=== PATIENT | female | born 1990 | race Caucasian/White ===

== ENCOUNTER → 2023-10-24 13:55 | Outpatient (REF) | payer OTHER, SELFPAY | LOC: PNTC 13:55 | PROVIDERS: ATTENDING PHYSICIAN Obstetrics & Gynecology | DX: Z34.90 Encounter for supervision of normal pregnancy, unspecified, unspecified trimester (principal) | CPT/HCPCS: 76801 ==

== ENCOUNTER → 2023-11-13 09:52 | Outpatient (REF) | payer OTHER, SELFPAY | LOC: PNTC 09:52 | PROVIDERS: ATTENDING PHYSICIAN Obstetrics & Gynecology | DX: Z36.0 Encounter for antenatal screening for chromosomal anomalies (principal); Z36.82 Encounter for antenatal screening for nuchal translucency | CPT/HCPCS: 76801; 76813 ==

== ENCOUNTER → 2024-01-03 13:20 | Outpatient (REF) | payer OTHER, SELFPAY | LOC: PNTC 13:20 | PROVIDERS: ATTENDING PHYSICIAN Obstetrics & Gynecology | DX: Z34.00 Encounter for supervision of normal first pregnancy, unspecified trimester (principal); O28.9 Unspecified abnormal findings on antenatal screening of mother | CPT/HCPCS: 76811 ==

== ENCOUNTER → 2024-01-09 11:23 | Outpatient (REF) | payer OTHER, SELFPAY | LOC: PNTC 11:23 | PROVIDERS: ATTENDING PHYSICIAN Obstetrics & Gynecology | DX: Z34.90 Encounter for supervision of normal pregnancy, unspecified, unspecified trimester (principal) | CPT/HCPCS: 76815 ==

== ENCOUNTER 2024-05-27 19:12 | Inpatient (IN) | payer OTHER, SELFPAY ==
[2024-05-27 19:39] VITALS: BP 117/76; BMI 28.3
[2024-05-27 20:04] LABS: % Basophils 0.6 % (0-2); % Eosinophils 1.2 % (0-6); % Immature Granulocytes 1.3 % (0-0.5); % Lymphocytes 34.4 % (20.5-51.1); % Monocytes 9.4 % (1.7-9.3); % Neutrophils 53.1 % (42.2-75.2); Absolute Basophils 0.1 10^3/uL (0-0.2); Absolute Eosinophils 0.1 10^3/uL (0-0.7); Absolute Immature Granulocytes 0.1 10^3/uL (0-0.05); Absolute Lymphocytes 3.8 10^3/uL (1.2-3.4); Absolute Neutrophils 5.8 10^3/uL (1.4-6.5); Hematocrit 33.4 % (37.0-47.0); Hemoglobin 11.9 g/dL (12.0-16.0); Mean Corp Hgb Conc. 35.6 g/dL (33.0-37.0); Mean Corpuscular Hgb 32.4 pg (27.0-31.0); Mean Platelet Volume 10.5 fL (7.4-10.4); Nucleated Red Blood Cells % 0 %; Platelet Count 302 10^3/uL (130-400); Red Blood Cell Count 3.67 10^6/uL (4.20-5.40); White Blood Cell Count 10.9 10^3/uL (4.8-10.8)
[2024-05-28] MEDS: PITOCIN 30 UNITS/NSS 500 ML IV (07:34)
[2024-05-28] MEDS: LR 1000 IV ×3 (07:34→23:45)
[2024-05-28] MEDS: PEPCID 40 MG PO (10:03)
[2024-05-28] MEDS: SUBLIMAZE 100 MCG EPIDURAL (20:29)
[2024-05-28] MEDS: FENTANYL/BUPIVACAINE 100 EPIDURAL (20:52)
[2024-05-29] MEDS: PITOCIN 30 UNITS/NSS 500 ML IV (05:17)
[2024-05-29] MEDS: TYLENOL 650 MG PO ×3 (06:45→18:27)
[2024-05-29] MEDS: SYNTHROID 175 MCG PO (06:58)
[2024-05-29] MEDS: PRENATAL PLUS 1 TABLET PO (08:09)
[2024-05-29] MEDS: MOTRIN 600 MG PO ×3 (08:09→20:21)
[2024-05-29] MEDS: PEPCID 40 MG PO (08:15)
[2024-05-29] MEDS: SENOKOT-S 1 TABLET PO (13:48)
[2024-05-30] MEDS: TYLENOL 650 MG PO ×5 (00:18→23:55)
[2024-05-30] MEDS: MOTRIN 600 MG PO ×4 (05:18→23:55)
[2024-05-30 05:42] LABS: Hematocrit 31.2 % (37.0-47.0); Hemoglobin 10.8 g/dL (12.0-16.0)
[2024-05-30] MEDS: SYNTHROID 175 MCG PO (06:23)
[2024-05-30] MEDS: PEPCID 40 MG PO (08:51)
[2024-05-30] MEDS: SENOKOT-S 1 TABLET PO (08:52)
[2024-05-30] MEDS: PRENATAL PLUS 1 TABLET PO (08:52)
[2024-05-31] MEDS: SYNTHROID 175 MCG PO (06:33)
[2024-05-31] MEDS: SENOKOT-S 1 TABLET PO (09:05)
[2024-05-31] MEDS: PEPCID 40 MG PO (09:05)
[2024-05-31] MEDS: PRENATAL PLUS 1 TABLET PO (09:05)
[2024-05-31] MEDS: TYLENOL 650 MG PO (09:29)
[2024-05-31] MEDS: MOTRIN 600 MG PO (09:29)
[2024-05-31 15:43] LABS: Syphilis/T. pallidum Ab Reflex Negative (Negative)
== END 2024-05-31 12:23 | disposition home or self-care (01) | DRG 807 ==
LOC: LDRP 19:12
PROVIDERS: Obstetrics & Gynecology; ADMITTING PHYSICIAN Obstetrics & Gynecology
PROC: 3E033VJ Introduction of Other Hormone into Peripheral Vein, Percutaneous Approach (ICD-10-PCS; 2024-05-28)
PROC: 10907ZC Drainage of Amniotic Fluid, Therapeutic from Products of Conception, Via Natural or Artificial Opening (ICD-10-PCS; 2024-05-28)
PROC: 10E0XZZ Delivery of Products of Conception, External Approach (ICD-10-PCS; 2024-05-29)
PROC: 0KQM0ZZ Repair Perineum Muscle, Open Approach (ICD-10-PCS; 2024-05-29)
DX: O48.0 Post-term pregnancy (principal); Z37.0 Single live birth; Z3A.40 40 weeks gestation of pregnancy; O99.284 Endocrine, nutritional and metabolic diseases complicating childbirth; E03.9 Hypothyroidism, unspecified; O70.1 Second degree perineal laceration during delivery
CPT/HCPCS: 36415; 85014; 85018; 85025; 86780; 86850; 86900; 86901

== ENCOUNTER → 2025-05-06 07:19 | Outpatient (REF) | payer OTHER, SELFPAY | LOC: RCS 07:19 | PROVIDERS: ATTENDING PHYSICIAN Nurse Practitioner Primary Care | DX: Z13.6 Encounter for screening for cardiovascular disorders (principal); Z82.49 Family history of ischemic heart disease and other diseases of the circulatory system | CPT/HCPCS: 93306 ==